=== PATIENT | female | born 1985 | race Caucasian/White ===

== ENCOUNTER → 2020-08-03 | Outpatient (CLI) | payer MEDICAID, OTHER ==
--- NOTE | 2020-08-03 16:02 | XRAY Report ---
PROCEDURE: Wrist 4 View RT INDICATIONS: RT WRIST INJ TECHNIQUE: 4 views of the wrist were acquired. COMPARISON: None FINDINGS: Bones: No fractures or dislocations. No suspicious bony lesions. Scaphoid view: No trauma. Soft tissues: No suspicious soft tissue calcifications. IMPRESSION: Normal for age, source of current pain after trauma is not found. Reviewed by: Levon Das MD on 08/03/2020 4:00 PM [facility] Approved by: Levon Das MD on 08/03/2020 4:00 PM [facility] Station ID: [id number]
== END ==
LOC: DI.N 14:45
PROVIDERS: ATTEND Family Medicine
DX: S66.811A Strain of other specified muscles, fascia and tendons at wrist and hand level, right hand, initial encounter (principal)

== ENCOUNTER 2023-12-13 16:17 | Outpatient (CLI) | payer MEDICAID, OTHER ==
--- NOTE | 2023-12-13 17:13 | XRAY Report ---
PROCEDURE: Ankle 3+V LT INDICATIONS: SPRAIN OF UNSPECIFIED LIGAMENT OF LEFT ANKLE TECHNIQUE: 3 views of the ankle were acquired. COMPARISON: None. FINDINGS: Bones: Ankle fracture, as follows: Lateral malleolus / distal fibula: Transsyndesmotic (Joseph B). Medial malleolus: No displaced fracture. Posterior malleolus: No displaced fracture. Medial clear space: Less than 4 mm, not widened. Lateral clear space: Less than 5 mm, within normal limits. Soft tissues: Tibiotalar effusion present. Ankle swelling present. IMPRESSION: Joseph B ankle fracture. No radiographic features of an unstable fracture. Reviewed by: Quentin Mena MD on 12/13/2023 5:12 PM PDT Approved by: Quentin Mena MD on 12/13/2023 5:12 PM PDT Station ID: [id number]
== END 2023-12-13 16:18 | disposition home or self-care (01) ==
LOC: DI 16:17
PROVIDERS: ATTEND Physician Assistant Medical
DX: S82.62XA Displaced fracture of lateral malleolus of left fibula, initial encounter for closed fracture (principal)

== ENCOUNTER 2024-01-14 07:12 | Outpatient (CLI) | payer MEDICAID ==
--- NOTE | 2024-01-14 13:11 | XRAY Report ---
PROCEDURE: Ankle 3+V LT INDICATIONS: OTHER FRACTURE OF LEFT LOWER LEG TECHNIQUE: 3 views of the ankle were acquired. COMPARISON: X-ray ankle 12/13/2023 FINDINGS: Bones: Stable alignment of distal fibular/lateral malleolus fracture. Tibiotalar joint space is well maintained. Fracture lucencies are slightly less visible. Soft tissues: No tibiotalar joint effusion. Achilles tendon appears normal. IMPRESSION: Stable alignment of distal fibular/lateral malleolus fracture. Reviewed by: Lay Carcamo MD on 01/14/2024 1:09 PM PDT Approved by: Lay Carcamo MD on 01/14/2024 1:09 PM PDT Station ID: [id number]
== END 2024-01-14 07:13 | disposition home or self-care (01) ==
LOC: DI 07:12
PROVIDERS: ATTEND Orthopaedic Surgery
DX: S82.892D Other fracture of left lower leg, subsequent encounter for closed fracture with routine healing (principal)

== ENCOUNTER 2024-02-04 14:11 | Outpatient (CLI) | payer MEDICAID ==
--- NOTE | 2024-02-04 15:22 | XRAY Report ---
PROCEDURE: Ankle 3+V LT INDICATIONS: LEFT FIBULA FRACTURE TECHNIQUE: 3 views of the ankle were acquired. COMPARISON: Left ankle radiographs 01/14/2024 and 12/05/2023 FINDINGS: Bones: Mild progressive healing changes involving the distal fibular fracture with unchanged alignme nt. No new osseous abnormality. Soft tissues: Mild soft tissue edema. IMPRESSION: Mild progressive healing changes involving the distal fibular fracture with unchanged alignment. Reviewed by: You Hopper MD on 02/04/2024 3:21 PM PDT Approved by: You Hopper MD on 02/04/2024 3:21 PM PDT Station ID: [id number]
== END 2024-02-04 14:12 | disposition home or self-care (01) ==
LOC: DI 14:11
PROVIDERS: ATTEND Physician Assistant Surgical
DX: S82.62XD Displaced fracture of lateral malleolus of left fibula, subsequent encounter for closed fracture with routine healing (principal)

== ENCOUNTER 2024-03-08 08:18 | Outpatient (CLI) | payer MEDICAID ==
--- NOTE | 2024-03-08 11:03 | XRAY Report ---
PROCEDURE: Ankle 3+V LT INDICATIONS: DISPLACED FX OF LATERAL MALLEOLUS OF LEFT TIBIA TECHNIQUE: 3 views of the ankle were acquired. COMPARISON: X-ray left ankle dated the 2023. FINDINGS: Bones: Lucency of the distal fibula indicating fracture is less prominent. No new fracture or sublux ation seen. Soft tissues: Mild soft tissue swelling about the ankle, decreased since prior study IMPRESSION: Progressive healing changes involving the distal fibular fracture. Reviewed by: Michael Gonzalez MD on 03/08/2024 11:02 AM PDT Approved by: Michael Gonzalez MD on 03/08/2024 11:02 AM PDT Station ID: [id number]
== END 2024-03-08 08:19 | disposition home or self-care (01) ==
LOC: DI 08:18
PROVIDERS: ATTEND Physician Assistant Surgical
DX: S82.62XD Displaced fracture of lateral malleolus of left fibula, subsequent encounter for closed fracture with routine healing (principal)